=== PATIENT | female | born 1990 | race Caucasian/White ===

== ENCOUNTER 2020-09-03 11:16 | Outpatient (CLI) | payer BC, SELFPAY ==
[2020-09-05 23:22] LABS: Patient Race White; SARS-CoV-2 RNA Undetected (Undetected); SARS-CoV-2 Specimen Source Nasal
== END 2020-09-03 11:36 ==
PROVIDERS: Visit Provider Family Medicine
DX: Z11.59 Encounter for screening for other viral diseases (principal)
CPT/HCPCS: U0003

== ENCOUNTER 2021-06-07 03:23 | Outpatient (CLI) | payer BC, SELFPAY ==
[2021-06-07 12:39] LABS: CREATININE 0.7 mg/dL (0.55-1.02); Calculated LDL 83 mg/dL (<100); Cholesterol 138 mg/dL (<200); HDL Cholesterol 45 mg/dL (40-60); Triglyceride 53 mg/dL (<150)
== END 2021-06-07 03:24 | disposition home or self-care (01) ==
LOC: LOS 03:24
PROVIDERS: PCP Nurse Practitioner Family; Visit Provider Nurse Practitioner Family
DX: Z13.220 Encounter for screening for lipoid disorders (principal); Z84.1 Family history of disorders of kidney and ureter
CPT/HCPCS: 36415; 80061; 82565

== ENCOUNTER 2021-11-18 19:34 | Outpatient (CLI) | payer OTHER, SELFPAY ==
--- NOTE | 2021-11-18 14:43 | DI.RAD_ITS ---
Exam(s) XR LUMBAR SPINE COMPLETE EXAM: XR LUMBAR SPINE COMPLETE CLINICAL HISTORY: LUMBAR PAIN, M54.50, SLIP/FALL AT WORK LANDING ON LOWER LS SPINE. TECHNIQUE: 2D digital imaging was performed of the lumbar spine. Five images were obtained. AP, la teral, right oblique, left oblique and L5-S1 spot views were obtained. COMPARISON: No exams were available for comparison FINDINGS: BONES: No fracture or destructive lesion. Vertebral bodies are unremarkable. No facet hypertrophy roberto ntified. DISKS: Intervertebral disc spaces are maintained. ALIGNMENT: Lumbar spinal alignment is within normal limits. No spondylolysis or spondylolisthesis. SOFT TISSUE: Normal. IMPRESSION: Unremarkable radiographs of the lumbar spine. DATA REPOSITORY: RADIATION DOSE DELIVERED:
--- NOTE | 2021-11-18 14:44 | DI.RAD_ITS ---
Exam(s) XR SACRUM EXAM: XR SACRUM CLINICAL HISTORY: SACRAL BACK PAIN, M54.89, SLIP AND FALL AT WORK LANDING ON EDGE OF STAIR. TECHNIQUE: 2D digital imaging was performed. Two views were obtained. COMPARISON: No exams were available for comparison FINDINGS: BONES: No acute fracture is present. No bony destructive lesion is seen. JOINTS: No dislocation present. SOFT TISSUE: Normal. IMPRESSION: Unremarkable radiographs of the sacrum. DATA REPOSITORY: RADIATION DOSE DELIVERED:
== END 2021-11-18 19:54 ==
PROVIDERS: PCP Nurse Practitioner Family; Visit Provider Physician Assistant Medical
DX: M54.89 Other dorsalgia (principal); M54.50 Low back pain, unspecified
CPT/HCPCS: 72110; 72220

== ENCOUNTER 2025-09-17 01:38 | Outpatient (CLI) | payer OTHER, SELFPAY ==
[2025-09-17 07:19] LABS: Abs Immature Grans 0.01 10^3/uL (0.0-0.06); HCT 38.7 % (36.0-46.0); HGB 13.0 g/dL (11.2-15.7); Immature Grans % 0.1 %; MCH 30.5 pg (27.0-33.0); MCHC 33.6 % (32.0-36.0); MCV 91 fL (80-95); MPV 9.8 fL (8.0-11.0); Platelet Count 284 10^3/uL (130-400); RBC 4.26 10^6/uL (3.93-5.22); RDW 11.7 % (11.7-14.6); RDW-SD 38.8 fL; WBC 6.70 10^3/uL (4.4-10.8)
[2025-09-17 07:44] LABS: Hemoglobin A1C 5.1 % (<5.7)
[2025-09-17 08:35] LABS: ALT 19 U/L (14-59); AST 17 U/L (15-37); Albumin 4.1 g/dL (3.4-5.0); Alkaline Phosphatase 53 U/L (46-116); Anion Gap 9.2 mmol/L (3-11); BUN 17 mg/dL (7-18); Bilirubin, Total 0.3 mg/dL (0.2-1.0); CO2 26.8 mmol/L (21.0-32.0); Calcium 8.9 mg/dL (8.5-10.1); Chloride 103 mmol/L (98-107); Cholesterol 166 mg/dL (<200); Glucose 100 mg/dL (74-106); HDL Cholesterol 51 mg/dL (>or=50); Potassium 4.2 mmol/L (3.5-5.1); Sodium 139 mmol/L (136-145); TSH (W/Ref FT4) 2.36 uIU/mL (0.36-3.74); Total Protein 7.8 g/dL (6.4-8.2)
[2025-09-17 18:25] LABS: HBs Antibody, Quant 57.4 mIU/mL (See Note); Hepatitis B Surface Antigen Negative (Negative)
[2025-09-17 18:28] LABS: Hepatitis C Ab w Rflx HCV PCR Negative (Negative)
[2025-09-17 18:31] LABS: HIV-1/2 Ag & Ab Screen Negative (Negative)
== END 2025-09-17 01:39 | disposition home or self-care (01) ==
LOC: LBO 01:38
PROVIDERS: PCP Nurse Practitioner Family; Visit Provider Nurse Practitioner Family
DX: Z00.00 Encounter for general adult medical examination without abnormal findings (principal); Z11.59 Encounter for screening for other viral diseases; Z11.4 Encounter for screening for human immunodeficiency virus [HIV]
CPT/HCPCS: 36415; 80053; 80061; 86704; 86706; 86803; 87340; 87389; 83036; 84443; 85025